=== PATIENT | female | born 1975 | race Hispanic/Latino ===

== ENCOUNTER 2023-02-06 18:11 | Emergency (ER) | payer MEDICAID, SELFPAY ==
--- NOTE | ~2023-02-06 | XR_ITS ---
EXAM: XR abdomen/kub 1V DATE: 02/06/2023 19:06 HISTORY: LOWER ABD PAIN AND DISTENTION . COMPARISON: None available. FINDINGS: Clear lung bases. Paucity of small bowel gas. Normal large bowel gas pattern. No organomeg elvira. Rounded calcification over the left iliac wing, presumably a bone island, outside the expected p ath of the left ureter. Mild vascular calcifications. Lumbar scoliosis and degenerative disc disease. Osteitis pubis. IMPRESSION: Paucity of small bowel gas limits interpretation for ileus or obstruction. Normal large b owel gas pattern. Reviewed, dictated and finalized at location K. IMPRESSION: Paucity of small bowel gas limits interpretation for ileus or obstr uction. Normal large bowel gas pattern.
[2023-02-06 18:36] VITALS: BP 110/64; PULSE 63; RESP 16; TEMP 36.7; O2SAT 100
--- NOTE | 2023-02-06 18:42 | ED.URI ---
HPI - URI/Sore Throat General Chief Complaint: Upper Respiratory Infection Stated Complaint: fever,chills,congestion Time Seen by Provider: 02/06/23 18:42 Source: patient Mode of arrival: ambulatory Limitations: no limitations History of Present Illness HPI Narrative: 47-year-old female presents with complaint of low back pain, abdominal pain and bloating. Symptoms for 2-3 days. Tried to have bowel movement yesterday and was very small. Reports history of constipation. Patient also complaining of headache, dizziness, fatigue. Afebrile. No urinary symptoms. Last menstrual period 3 months ago. Patient unsure , currently not using any control. All systems reviewed and negative except as noted above. Related Data Home Medications Medication Instructions Recorded Confirmed No Home Medications 02/06/23 02/06/23 Allergies Allergy/AdvReac Type Severity Reaction Status Date / Time No Known Allergies Allergy Verified 02/06/23 18:42 Review of Systems Review of Systems: CONSTITUTIONAL: Denies fever, chills, or sweats. reports fatigue. EYES: Denies visual changes, redness, or discharge. ENT: Denies rhinorrhea, congestion, sore throat, or otalgia. CARDIOVASCULAR: Denies chest pain, palpitations, or edema. RESPIRATORY: Denies cough or dyspnea. GASTROINTESTINAL: Reports abdominal pain, nausea , constipation. Denies vomiting, or diarrhea. GENITOURINARY: Denies dysuria or hematuria. SKIN: Denies rash or itching. MUSCULOSKELETAL: Denies back pain, joint pain, or myalgia. NEUROLOGIC: reports headache, dizziness. Deniesnumbness, or weakness. PSYCHIATRIC: Denies anxiety or depression. All other systems reviewed are negative, except as documented in HPI. PMFSH Comments At time of signature, agree with nursing past medical, surgical, social and family history. There is no relevant family history pertinent to the presenting complaint. Exam Narrative: GENERAL: This is a well-nourished, well-developed patient, in no apparent distress. HEAD: normocephalic, atraumatic. EYES: PERRL. Sclera clear/white. Vision is grossly intact. EARS: External ears normal, auditory canals clear and without drainage, TMs normal without perforation. Hearing grossly intact. NOSE: External nose normal with no obvious nasal discharge, nares without redness, no rhinorrhea. THROAT: Mucous membranes moist, posterior pharynx clear. NECK: Neck supple, non-tender without lymphadenopathy, masses or thyromegaly. CARDIOVASCULAR: Regular rate and rhythm without murmurs, gallops, or rubs. RESPIRATORY: Clear to auscultation. Breath sounds equal bilaterally. No wheezes, rales, or rhonchi. GASTROINTESTINAL: Abdomen soft, tenderness to lower abdomen,distended. Bowel sounds are hypoactive. No hepato-splenomegaly, or palpable masses. No guarding. SKIN: warm, Dry, intact with no suspicious lesions or rash, good texture and turgor. NEURO: awake, alert, and oriented to person, place and time. There were no obvious focal neurologic abnormalities. EXTREMITIES: No joint tenderness, effusion, or edema noted. Course Course Level of Care: Express Care Visit Vital Signs Vital signs: Vital Signs Temperature 36.7 C 02/06/23 18:36 Pulse Rate 63 02/06/23 18:36 Respiratory Rate 16 02/06/23 18:36 Blood Pressure 110/64 02/06/23 18:36 Pulse Oximetry 100 02/06/23 18:36 Oxygen Delivery Room Air 02/06/23 18:36 Temperature 36.7 C 02/06/23 18:36 Pulse Rate 63 02/06/23 18:36 Respiratory Rate 16 02/06/23 18:36 Blood Pressure 110/64 02/06/23 18:36 Pulse Oximetry 100 02/06/23 18:36 Oxygen Delivery Room Air 02/06/23 18:36 reviewed Transfer Transfered to: [facility] Transportation: Other ( private car) Transfer rationale: KUB concerning for possible bowel obstruction Accepting physician: Dr. Brooks MDM - URI/Sore Throat MDM Narrative Medical decision making narrative: transfer patient to [facility]
== END 2023-02-06 19:50 | disposition short-term general hospital (02) ==
PROVIDERS: Emergency Provider Nurse Practitioner Family
DX: R10.30 Lower abdominal pain, unspecified (principal); Z20.822 Contact with and (suspected) exposure to COVID-19
CPT/HCPCS: 74018; 81003; 81025; 87086; 87426; 87804; 99203; C9803; G0463

== ENCOUNTER 2023-02-06 20:17 | Emergency (ER) | payer MEDICAID, SELFPAY ==
[2023-02-06 20:18] VITALS: BP 134/89; PULSE 58; RESP 14; TEMP 36.6; O2SAT 97
--- NOTE | 2023-02-06 21:08 | PC.NURSE ---
patient ambulated to desk and stated she was leaving at this time. patient alert and oriented x4.
== END 2023-02-06 21:08 | disposition left against medical advice (07) ==
LOC: ANHED 21:16
DX: R10.9 Unspecified abdominal pain (principal)
CPT/HCPCS: 99199

== ENCOUNTER 2023-02-07 14:38 | Emergency (ER) | payer MEDICAID, SELFPAY ==
--- NOTE | 2023-02-07 15:16 | PC.NURSE ---
Called pt to triage area, not in waiting room
== END 2023-02-07 18:02 | disposition left against medical advice (07) ==
DX: Z53.21 Procedure and treatment not carried out due to patient leaving prior to being seen by health care provider (principal)
CPT/HCPCS: 99199